=== PATIENT | female | born 1995 | race Caucasian/White ===

== ENCOUNTER 2016-10-31 16:47 | Emergency (ER) | payer OTHER ==
[~2016-10-31] VITALS: Ht 154.9 cm; Wt 68.0 kg
[~2016-10-31 16:47] MED LIST: PREN-88 PO
[2016-10-31 19:00] VITALS: BP 118/64
== END 2016-10-31 19:30 | disposition home or self-care (01) ==
LOC: ER 19:04
DX: O23.42 Unspecified infection of urinary tract in pregnancy, second trimester (principal); N39.0 Urinary tract infection, site not specified; O26.892 Other specified pregnancy related conditions, second trimester; N13.30 Unspecified hydronephrosis; Z3A.23 23 weeks gestation of pregnancy
CPT/HCPCS: 76770; 99284; Z7610

== ENCOUNTER 2018-12-21 15:16 | Emergency (ER) | payer MEDICAID, OTHER ==
[~2018-12-21] VITALS: Ht 154.9 cm; Wt 53.0 kg
[2018-12-21 19:04] LABS: CLARITY URINE CLEAR (CLEAR); COLOR URINE YELLOW (YELLOW); KETONES URINE TRACE (NEGATIVE); LEUKOCYTE ESTERASE URINE NEGATIVE (NEGATIVE); NITRITE URINE NEGATIVE (NEGATIVE); OCCULT BLOOD URINE NEGATIVE (NEGATIVE); PROTEIN URINE NEGATIVE (NEGATIVE); SPECIFIC GRAVITY URINE 1.033 (1.005-1.030); UROBILINOGEN URINE 0.2 E.U./dL (0.2-1.0)
[2018-12-21 22:58] LABS: BASOPHILS % 1.1 % (0.0-2.0); EOSINOPHILS % 0.8 % (0.0-5.0); HEMOGLOBIN. 13.4 g/dL (12.0-16.0); LYMPHOCYTES % 32.9 % (20.0-50.0); MEAN CORPUSCULAR HEMOGLOBIN 31.6 pg (28.0-32.0); MEAN CORPUSCULAR VOLUME 91.8 fL (81.0-99.0); MEAN PLATELET VOLUME 11.3 fl (7.4-10.4); MONOCYTES % 6.3 % (2.0-8.0); NEUTROPHILS % 58.9 % (40.0-76.0); PLATELET 149 x1000/uL (130-400); RED BLOOD CELL COUNT 4.25 mill/uL (4.2-5.4)
[2018-12-21 23:03] LABS: CHLORIDE 109 mEq/L (98-107)
[2018-12-21 23:14] LABS: B-HCG QUANTITATIVE < 1 mIU/mL (<3)
[2018-12-21 23:20] VITALS: BP 119/51
== END 2018-12-21 23:51 | disposition home or self-care (01) ==
LOC: ER 15:37
DX: N76.0 Acute vaginitis (principal); N83.209 Unspecified ovarian cyst, unspecified side; Z98.890 Other specified postprocedural states
CPT/HCPCS: 36415; 76830; 76856; 81003; 81025; 84702; 87077; 99284

== ENCOUNTER 2023-10-07 12:48 | Emergency (ER) | payer SELFPAY ==
[~2023-10-07] VITALS: Ht 154.9 cm; Wt 78.5 kg
[2023-10-07 13:47] VITALS: O2SAT 100
[2023-10-07] MEDS ORDERED: AMOX1TAB16 MT (18:05)
[2023-10-07 18:25] VITALS: BP 133/74; PULSE 69; RESP 18; TEMP 98.2
== END 2023-10-07 18:38 | disposition home or self-care (01) ==
LOC: ER 12:48
DX: M27.2 Inflammatory conditions of jaws (principal); Z98.890 Other specified postprocedural states
CPT/HCPCS: 70486; 81025; 99284